=== PATIENT | male | born 1990 | race African-American/Black ===

== ENCOUNTER 2017-01-17 19:05 | Emergency (ER) | payer SELFPAY ==
[~2017-01-17] VITALS: Ht 182.9 cm; Wt 111.1 kg
[2017-01-17 22:57] VITALS: BP 140/91
== END 2017-01-17 22:57 | disposition home or self-care (01) ==
LOC: ED 19:05
DX: M25.561 Pain in right knee (principal); M25.562 Pain in left knee; M54.5 Low back pain; R21 Rash and other nonspecific skin eruption